=== PATIENT | female | born 1950 | race Caucasian/White ===

== ENCOUNTER → 2016-07-26 | Outpatient (CLI) | payer MEDICARE ==
--- NOTE | 2016-07-26 14:09 | REPMRS ---
Patient History The patient states she had a clinical breast exam in 04/02 Patient is postmenopausal. Family history of colorectal cancer in father at age 69. Digital Woman Screen Mammo: July 26, 2016 - Exam #: [id number] Bilateral CC and MLO view(s) were taken. Technologist: Valentine Garcia, Technologist Prior study comparison: January 28, 2014, digital woman screen mammo performed at [facility] to [facility]. July 30, 2011, digital woman screen mammo performed at [facility] to [facility]. FINDINGS: There are scattered fibroglandular densities. There has been no change in the appearance of the mammogram from the prior studies. There is a mild amount of residual fibroglandular tissue which is fairly symmetric. There is no interval development of dominant mass, architectural distortion, or clustered microcalcification suggestive of malignancy. ASSESSMENT: BI-RADS/ACR category 1 mammogram. Negative. Recommendation Routine screening mammogram in 1 year (for women over age 40). This mammogram was interpreted with the aid of an FDA-approved computer-aided dectection system. Electronically Signed By: Isidoro Tapia MD 07/26/16 0527
--- NOTE | 2016-07-28 10:30 | DEXA ---
AP SPINE L1 - L4 1.049 -1.2 0.8 LT FEMUR TOTAL 0.733 -2.2 -0.7 RT FEMUR TOTAL 0.734 -2.2 -0.7 TOTAL BODY TOTAL OTHER DUAL FEMUR FRAX* ASSESSMENT Risk factors: None. 10 year probability of fracture Major osteoporotic fracture 9.6 % Hip fracture 1.6 % COMMENTS: There is low bone density of the spine and hips. The density of the right hip has decreased 13.7% since 02/26/2010. The decreased density of the spine does not represent a significant change. The decreased density of the left hip does represent a significant change. The decreased density of the right hip does represent a significant change. The density of the spine has decreased 11.1% since the initial exam on 2004. The spine density has decreased 0.9% since the most recent exam on 02/26/2010. The density of the left hip has decreased 22.4% since the initial exam on 2004. The density of the left hip has decreased 10.0% since the most recent exam on . FOLLOW-UP: Recommendation for the next bone density exam: 2 years. HANK
== END ==
LOC: M WHC 12:58
PROVIDERS: ATTEND Nurse Practitioner Family
DX: Z12.31 Encounter for screening mammogram for malignant neoplasm of breast (principal); M85.80 Other specified disorders of bone density and structure, unspecified site
CPT/HCPCS: 77080; G0202

== ENCOUNTER → 2018-09-19 | Outpatient (CLI) | payer MEDICARE ==
[~2018-09-19] MED LIST: ASPI-255 PO; CALC600T31 PO; CLEO300C2 PO; FOLI1TAB11 PO; LISI-1046; METO1TAB87; MULT1TAB10 PO; TYLE650T35 PO; VITA-110 PO
--- NOTE | 2018-09-19 16:21 | REPMRS ---
Patient History The patient states she had a clinical breast exam in 07/2018. Family history of colorectal cancer at age 69 in father. 3D TOMOSYNTHESIS WAS PERFORMED. Digital Woman Screen Mammo: September 19, 2018 - Exam #: [id number] Bilateral CC and MLO view(s) were taken. Technologist: Valentine Garcia, Technologist Prior study comparison: July 26, 2016, digital woman screen mammo performed at [facility]. January 28, 2014, digital woman screen mammo performed at [facility]. FINDINGS: The breast tissue is heterogeneously dense. This may lower the sensitivity of mammography. There has been no change in the appearance of the mammogram from the prior studies. There is a moderate amount of residual fibroglandular tissue which is fairly symmetric. There is no interval development of dominant mass, areas of architectural distortion, or clustered microcalcification typical of malignancy. Assessment: BI-RADS/ACR category 1 mammogram. Negative Mammogram. Recommendation Routine screening mammogram in 1 year (for women over age 40). This mammogram was interpreted with the aid of an FDA-approved computer-aided dectection system. Electronically Signed By: Isidoro Tapia MD 09/19/18 3004
== END ==
LOC: M WHC 14:24
PROVIDERS: ATTEND Nurse Practitioner Family
DX: Z12.31 Encounter for screening mammogram for malignant neoplasm of breast (principal); Z80.0 Family history of malignant neoplasm of digestive organs

== ENCOUNTER → 2019-12-28 | Outpatient (CLI) | payer MEDICARE ==
[~2019-12-28] MED LIST changes: +ACET650T61 PO; -LISI-1046; +LISI2.5T2; -TYLE650T35 PO
--- NOTE | 2019-12-28 16:20 | REPMRS ---
Patient History The patient states she has not had a clinical breast exam in over a year. Patient is postmenopausal. Family history of colorectal cancer at age 69 in father. No Hormone Replacement Therapy 3D TOMOSYNTHESIS WAS PERFORMED. [facility] lifetime risk for breast cancer is 5.6%. VOLMJA FLORIDALMA Chand. Digital Woman Screen Mammo: December 28, 2019 - Exam #: [id number] Bilateral CC and MLO view(s) were taken. Technologist: Zeenat Gaytan, Technologist Prior study comparison: September 19, 2018, bilateral digital woman screen mammo performed at [facility]. July 26, 2016, digital woman screen mammo performed at [facility]. FINDINGS: There are scattered fibroglandular densities. There has been no change in the appearance of the mammogram from the prior studies. There is a mild amount of residual fibroglandular tissue which is fairly symmetric. There is no interval development of dominant mass, architectural distortion, or clustered microcalcification suggestive of malignancy. Assessment: BI-RADS/ACR category 1 mammogram. Negative Mammogram. Recommendation Routine screening mammogram in 1 year (for women over age 40). This mammogram was interpreted with the aid of an FDA-approved computer-aided dectection system. Electronically Signed By: Isidoro Tapia MD 12/28/19 2356
== END ==
LOC: M WHC 15:21
PROVIDERS: ATTEND Nurse Practitioner Family
DX: Z12.31 Encounter for screening mammogram for malignant neoplasm of breast (principal); Z78.0 Asymptomatic menopausal state; Z80.0 Family history of malignant neoplasm of digestive organs

== ENCOUNTER → 2020-09-05 | Outpatient (REF) ==
--- NOTE | 2020-09-05 13:37 | REP ---
INDICATION: AUTOPSY. TECHNIQUE: AP and lateral portable views of the skull FINDINGS: Venous vascular lakes are seen on the lateral view. There is no evidence of a skull fracture. IMPRESSION: As above <Electronically signed by Weston Anderson > 09/05/20 2319
--- NOTE | 2020-09-05 13:39 | REP ---
INDICATION: AUTOPSY. COMPARISON: None TECHNIQUE: Portable AP and lateral views FINDINGS: Lateral images from C 2 to C7 There is disc space narrowing at every level. There is no definite evidence of a fracture or significant subluxation. The imaged upper chest shows multiple bilateral rib fractures and a right clavicle fracture IMPRESSION: As above <Electronically signed by Weston Anderson > 09/05/20 [id number]
--- NOTE | 2020-09-05 13:45 | REP ---
INDICATION: AUTOPSY. COMPARISON: None TECHNIQUE: Supine AP portable FINDINGS: On the right the 2nd through 10th ribs are fractured and possibly the 1st as well. More inferiorly the ribs are not well seen. Additional fractures cannot be ruled out. On the left the 3rd through 6th, and 8th through probably 10th ribs are fractured and again more inferiorly the ribs are not well seen. There is a right clavicle fracture. The imaged portion of the thoracic spine which is only visible contiguously from T1 to T8 shows normal vertebral body height, however, at the T8-9 level there is complete off set translation of the thoracic spine the upper have to the right of the lower half which includes T9-L1. These vertebral columns are by 1.25 cm. Vertebral body height of the lower half of the imaged spine is within normal limits. IMPRESSION: Multiple fractures and marked spinal deformity as described above. <Electronically signed by Weston Anderson > 09/05/20 [id number]
--- NOTE | 2020-09-05 13:48 | REP ---
INDICATION: AUTOPSY. COMPARISON: None. TECHNIQUE: A single AP view of the pelvis was performed. FINDINGS: Right to superior and inferior pubic rami fractures are noted. The hips are not dislocated. The midline and right upper pelvis is obscured by intestinal content as is the right half of the sacrum. I cannot rule out additional fractures. No left yue pelvic fractures are identified. Evaluation of L2 and L3 is markedly limited due to superimposition of content that. Those vertebral bodies appear to have a normal height as do L4 and L5. IMPRESSION: Right yue pelvic fractures with other findings and limitations as described above. <Electronically signed by Weston Anderson > 09/05/20 0093
[2020-09-05 20:00] LABS: INFLUENZA A AMPLIFICATION NEGATIVE (NEGATIVE); INFLUENZA B AMPLIFICATION NEGATIVE (NEGATIVE)
== END ==
LOC: M LAB 10:08